=== PATIENT | male | born 1990 | race Caucasian/White ===

== ENCOUNTER → 2020-12-15 | Day surgery (SDC) | payer OTHER ==
[~2020-12-15] VITALS: Ht 175.3 cm; Wt 77.3 kg
[~2020-12-15] MED LIST: ACETAMINOPHEN 1000MG 100ML IV BTL (OFIRMEV) (J0131 PER 10MG) As Ordered ONE; BUPIVACAINE HCL 0.5% 10ML VIAL As Ordered ONE; CEPH500C PO; COLA100C5 PO; HYDR-3713 PO; KETOROLAC 60MG 2ML VIAL As Ordered ONE; LIDOCAINE 1% MDV 20ML VIAL As Ordered ONE; LIDOCAINE 1% MDV 20ML VIAL SC ONE; LIDOCAINE 2% 100MG/5ML SDV (FOR ANES.) As Ordered ONE; LR 1,000 ML IV SCH; MIDAZOLAM INJ 2MG/2ML VIAL (J2250 PER 1MG) As Ordered ONE; MORPHINE 4 MG/ML 1ML VIAL/SYRINGE (J2270) As Ordered ONE; MORPHINE 4 MG/ML 1ML VIAL/SYRINGE (J2270) IV ONE; ONDANSETRON 4MG/2ML VIAL As Ordered ONE; ONDANSETRON 4MG/2ML VIAL IV ONE; ONDANSETRON 4MG/2ML VIAL IV PRN; TETANUS/DIPHTHERIA TOX ADSORB ADULT 0.5ML SYR/VIAL (90714) IM ONE; ceFAZolin SOD 2 GM in IV 1 EA IV ONE; dexameTHASONE 4 MG/ML 1ML VIAL (J1100 PER 1MG) As Ordered ONE; fentaNYL 100 MCG/2 ML INJECTION (J3010) IV PRN; fentaNYL 250 MCG/5 ML INJECTION (J3010) As Ordered ONE; oxyCODONE 5MG TAB PO PRN; propofoL 200 MG/20 ML VIAL As Ordered ONE
--- OUTSIDE RECORDS SUMMARY | 2020-12-15 02:10 | CCD | Continuity of Care Document ---
Author Author Chi ISAACS MD Organization Unknown Address [address] [place] [address] Phone [phone] Care Team Providers Care Copy Center Specialist Name Role Phone Usa MeddacAshley federico AUTM Unavailable Problems Description No Information Available Social History Type Date Description Comments Sex Unknown Tobacco Use Start: Unknown End: Unknown Quit Tobacco Use Start: Unknown Never Smoked Cigars Tobacco Use Start: Unknown Never Smoked A Pipe Tobacco Use Start: Unknown Current Smokeless Tobacco User, Uses 3 Times Daily ETOH Use Occasionally consumes alcohol Tobacco Use Start: Unknown End: Patient is a former smoker Allergies, Adverse Reactions, Alerts Active Allergies Reaction Severity Comments Date NKDA 03/05/2017 NKFA 03/05/2017 NKEA 03/05/2017 Medications Description No Active Medications Immunizations Description No Information Available Vital Signs Date Vital Result Comment 09/25/2020 2:01pm BP Systolic 133 mmHg BP Diastolic 77 mmHg Heart Rate 80 /min Body Temperature 98.7 F O2 % BldC Oximetry 98 % Weight 175.00 lb Weight 79.380 kg 07/25/2020 9:43am BP Systolic 133 mmHg BP Diastolic 84 mmHg Heart Rate 55 /min Body Temperature 97.4 F Weight 165.00 lb Weight 74.844 kg Height 69 inches 5'9" BMI (Body Mass Index) 24.4 kg/m2 BSA (Body Surface Area) 1.90 m2 Results Description No Information Available Procedures Description No Information Available Medical Devices Description No Information Available Encounters Description No Information Available Assessments Date Code Description Provider 07/25/2020 Z48.89 Encounter for other specified dye rgical aftercare Ap Isaacs MD 05/24/2020 N62 Hypertrophy of breast Ap chu MD Plan of Treatment 07/25/2020 - Ap Isaacs MD* Z48.89 Encounter for other specified surgical aftercare* Comments:* Assessment: Satisfactory postoperative course.Plan: Return to work: scheduled for 08/08/2020. No contraindication to return to full activity at that time.Follow-up for wound check and to assess for residual breast enlargement and 2-3 months. Functional Status Description No Information Available Mental Status Description No Information Available Referrals Description No Information Available
--- OUTSIDE RECORDS SUMMARY | 2020-12-15 02:11 | CCD ---
Author Author [facility] Organization [facility] Address Unknown Phone Unavailable Care Team Providers Care Bit Bender Name Role Phone Greg ISAACS MD Unavailable Unavailable Greg ISAACS MD Unavailable Unavailable Greg ISAACS MD Unavailable Unavailable Greg ISAACS MD Unavailable Unavailable Greg ISAACS MD Unavailable Unavailable Greg ISAACS MD Unavailable Unavailable Greg ISAACS MD Unavailable Unavailable Greg ISAACS MD Unavailable Unavailable Greg ISAACS MD Unavailable Unavailable Greg ISAACS MD Unavailable Unavailable Greg ISAACS MD Unavailable Unavailable Greg ISAACS MD Unavailable Unavailable Greg ISAACS MD Unavailable Unavailable NON, PHYSICIAN STAFF Unavailable Unavailable KARLA KUHN FEBRUARY Unavailable Unavailable Greg ISAACS MD Unavailable Unavailable Greg ISAACS MD Unavailable Unavailable Greg ISAACS MD Unavailable Unavailable Greg ISAACS MD Unavailable Unavailable Greg ISAACS MD Unavailable Unavailable Greg ISAACS MD Unavailable Unavailable Greg ISAACS MD Unavailable Unavailable Greg ISAACS MD Unavailable Unavailable Greg ISAACS MD Unavailable Unavailable Greg ISAACS MD Unavailable Unavailable Greg ISAACS MD Unavailable Unavailable Greg ISAACS MD Unavailable Unavailable Greg ISAACS MD Unavailable Unavailable Andrew CLAROS MD Unavailable Unavailable Andrew CLAROS MD Unavailable Unavailable Andrew CLAROS MD Unavailable Unavailable Andrew CLAROS MD Unavailable Unavailable Andrew CLAROS MD Unavailable Unavailable Andrew CLAROS MD Unavailable Unavailable Andrew CLAROS MD Unavailable Unavailable Andrew CLAROS MD Unavailable Unavailable Andrew CLAROS MD Unavailable Unavailable Andrew CLAROS MD Unavailable Unavailable Andrew CLAROS MD Unavailable Unavailable Andrew CLAROS MD Unavailable Unavailable Andrew CLAROS MD Unavailable Unavailable Andrew CLAROS MD Unavailable Unavailable Andrew CLAROS MD Unavailable Unavailable Andrew CLAROS MD Unavailable Unavailable Andrew CLAROS MD Unavailable Unavailable Andrew CLAROS MD Unavailable Unavailable Andrew CLAROS MD Unavailable Unavailable Andrew CLAROS MD Unavailable Unavailable Andrew CLAROS MD Unavailable Unavailable Andrew CLAROS MD Unavailable Unavailable Andrew CLAROS MD Unavailable Unavailable Andrew CLAROS MD Unavailable Unavailable Andrew CLAROS MD Unavailable Unavailable Andrew CLAROS MD Unavailable Unavailable Andrew CLAROS MD Unavailable Unavailable Andrew CLAROS MD Unavailable Unavailable Andrew CLAROS MD Unavailable Unavailable Andrew CLAROS MD Unavailable Unavailable Andrew CLAROS MD Unavailable Unavailable Andrew CLAROS MD Unavailable Unavailable Andrew CLAROS MD Unavailable Unavailable Andrew CLAROS MD Unavailable Unavailable Andrew CLAROS MD Unavailable Unavailable Andrew CLAROS MD Unavailable Unavailable Andrew CLAROS MD Unavailable Unavailable Andrew CLAROS MD Unavailable Unavailable Andrew CLAROS MD Unavailable Unavailable Andrew CLAROS MD Unavailable Unavailable Andrew CLAROS MD Unavailable Unavailable Andrew CLAROS MD Unavailable Unavailable Andrew CLAROS MD Unavailable Unavailable Andrew CLAROS MD Unavailable Unavailable Andrew CLAROS MD Unavailable Unavailable Andrew CLAROS MD Unavailable Unavailable Andrew CLAROS MD Unavailable Unavailable Andrew CLAROS MD Unavailable Unavailable Andrew CLAROS MD Unavailable Unavailable Andrew CLAROS MD Unavailable Unavailable Re-disclosure Warning The records that you are about to access may contain information from federally-assisted alcohol or drug abuse programs. If such information is present, then the following federally mandated warning applies: This information has been disclosed to you from records protected by federal confidentiality rules (42 CFR part 2). The federal rules prohibit you from making any further disclosure of this information unless further disclosure is expressly permitted by the written consent of the person to whom it pertains or as otherwise permitted by 42 CFR part 2. A general authorization for the release of medical or other information is NOT sufficient for this purpose. The Federal rules restrict any use of the information to criminally investigate or prosecute any alcohol or drug abuse patient.The records that you are about to access may contain highly sensitive health information, the redisclosure of which is protected by Article 27-F of the [facility] Public Health law. If you continue you may have access to information: Regarding HIV / AIDS; Provided by facilities licensed or operated by the [facility] Office of Mental Health; or Provided by the [facility] Office for People With Developmental Disabilities. If such information is present, then the following [facility] mandated warning applies: This information has been disclosed to you from confidential records which are protected by state law. State law prohibits you from making any further disclosure of this information without the specific written consent of the person to whom it pertains, or as otherwise permitted by law. Any unauthorized further disclosure in violation of state law may result in a fine or snf sentence or both. A general authorization for the release of medical or other information is NOT sufficient authorization for further disc losure. Allergies and Adverse Reactions Type Description Substance Reaction Status Data Source(s ) No Known Drug Allergies No Known Drug Allergies [facility] No Known Food Allergies No Known Food Allergies [facility] No Known Allergies No Known Allergies [facility] Encounters Encounter Providers Location Date Indications Data Source(s ) Outpatient Attender: HERBERT ISAACS MDConsultant: STAFF NON 09/25/2020 01:59:00 PM EST - 09/25/2020 01:59:00 PM EST [facility] Outpatient Attender: HERBERT ISAACS MDConsultant: STAFF NON 07/25/2020 09:40:00 AM EDT - 07/25/2020 09:40:00 AM EDT [facility] Outpatient Attender: HERBERT ISAACS MDConsultant: STAFF NON 07/09/2020 07:20:54 AM EDT - 07/10/2020 01:54:00 PM EDT [facility] Patient discharged. Outpatient Attender: HERBERT ISAACS MDConsultant: STAFF NON 06/11/2020 07:33:56 AM EDT - 06/12/2020 02:50:00 PM EDT [facility] Patient discharged. Outpatient Attender: ERICK Gómezsultant: STAFF NON 05/24/2020 05:08:00 PM EDT - 05/24/2020 06:08:00 PM EDT [facility] Outpatient Attender: HERBERT ISAACS MD Family Practice 05/24/2020 0 2:00:00 PM EDT [facility] ([facility]) Outpatient Attender: HERBERT ISAACS MDConsultant: STAFF NON 05/24/2020 01:59:00 PM EDT - 05/24/2020 01:59:00 PM EDT [facility] Outpatient Attender: ERICK Gómezsultant: STAFF NON 05/23/2020 03:23:13 PM EDT - 07/26/2020 10:37:00 AM EDT [facility] Patient discharged. Attender: MARY CLAROS MD [facility] Adult Medicine 05/01/2020 06:15:00 PM EDT - 05/01/2020 06:15:00 PM EDT [facility] ([facility]) OutpatientOFFICE/OUTPATIENT VISIT EST Attender: MARY ROSS MA, MD [facility] Adult Medicine 04/26/2020 11:30:00 AM EDT - 04/26/2020 11:30:00 AM ED T Encounter for STD screening [facility] ([facility]) Encounter for STD screening Medications Medication Brand Name Start Date Product Form Dose Route Admi nistrative Instructions Pharmacy Instructions Status Indications Reaction Description Data Source(s) 5-325 mg 07/10/2020 12:00:00 AM EDT tablet 10 TAKE ONE TABLET BY MOUTH EVERY 4 HOURS NEEDED FOR PAIN - MAXIMUM DAILY DOSE = 6 TAKE ONE TABLET BY MOUTH EVERY 4 HOURS NEEDED FOR PAIN - MAXIMUM DAILY DOSE = 6 SOLD: 07/10/2020 [facility] Insurance Providers Payer name Policy type / Coverage type Policy ID Covered constitution party ID Covered constitution party's relationship to vázquez Policy Vázquez Plan Information ACTIVE DUTY [id number] SP [id number] [employer] - PHYSICIAN [id number] 18 [id number] [employer] - O/P [id number] 18 [id number] [id number] [place] [id number] 18 [id number] [place] [id number] 18 [id number] [place] [employer] [place] [id number] 18 [id number] U [id number] Self [id number] [employer]/ AD O [id number] S [id number] [employer]/ AD O UNAVAILABLE S UNAVAILABLE ACTIVE DUTY [id number] SELF [id number] SELF [id number] [facility] [id number] SELF [id number] Problems, Conditions, and Diagnoses Code Display Name Description Problem Type Effective Dates Data Source(s) R99 Ill-defined and unknown cause of mortali ty Ill-defined and unknown cause of mortality Diagnosis 07/26/2020 10:37:00 AM EDT [facility] [id number] Encounter for surgical after care following surgery on the skin and subcutaneous tissue Encounter for surgical aftercare followi ng surgery on the skin and subcutaneous tissue Diagnosis 07/25/2020 09:40:00 AM EDT [facility] N62 Hypertrophy of breast Hypertrophy of breast Diagnosis 07/10/2020 11:30:00 AM EDT [facility] Surgeries/Procedures Procedure Description Date Indications Data Source(s) OFFICE/OUTPATIENT VISIT EST 04/26/2020 1 2:00:00 AM EDT - 04/26/2020 12:00:00 AM EDT [facility] ([facility]) Results ID Date Data Source [id number] 05/25/2020 10:04:00 AM EDT [facility] [address] [place] [address] PHONE: [phone] FAX: [phone] Name .................. : LUZ ELENA Paredes Acct Number.................. : [id number] ROOM. ................. : MR Number ................... : [id number] Stay type ............. : O/P Discharge Date......... ... : 05/24/20 Admit Date ....... .. : 05/24/20 Admit Phys .................... : Feb Date of ....... : 1990 Family Phys ................... : NON STAFF Phone .................. : [phone] Age ................................ : 30 Film# .................. .:[id number] Sex ................................. : M Unsigned transcriptions are preliminary reports and do not represent a medical or legal document BREAST LEFT [id number] COMPLETE:05/24/20 17:47 ADB 65433 (TEST REASON: GYNECOMASTIA LEFT BREAST ULTRASOUND: INDICATION: Gynecomastia. FINDINGS: Focused gonzales scale ultrasound of the left breast was performed. In the 3 o'clock position, there is a 0.7 x 1.7 x 1.6 cm fairly well-circumscribed hypoechogenic focus with mild internal color Doppler flow. Findings most likely represent gynecomastia. Recommend follow up ultrasound in 6 months. IMPRESSION: BI-RADS category 3. Findings most likely represent gynecomastia. Recommend follow up evaluation in 6 months. Electronically Reviewed and Signed By Sabino Henderson M.D. , 05/25/20 10:04, [place] Transcribe Initials: DZ , Transcribe Date: 05/25/20 01:20, Dictation Date: Copy for: HATTIE ACOSTA via fax Copy for: Xochitl [facility] Page 1 of 1 Name Value Range Interpretation Code Description Data Dejah rce(s) Supporting Document(s) ID Date Data Source [id number] 05/30/2020 06:26:00 AM EDT [facility] Name Value Range Interpretation Code Description Data Dejah rce(s) Supporting Document(s) Estrogen [Mass/volume] in Serum or Plasma 63 pg/mL 40-115 [facility] ID Date Data Source [id number] 05/28/2020 06:24:00 AM [facility] Value Range Interpretation Code Description Data Dejah rce(s) Supporting Document(s) Choriogonadotropin.intact+Beta subunit [Units/volume] in Serum or Plasma <1 mIU/mL 0-3 [facility] [place] ECLIA methodology ID Date Data Source [id number] 05/28/2020 06:24:00 AM [facility] Value Range Interpretation Code Description Data Dejah rce(s) Supporting Document(s) Lutropin [Units/volume] in Serum or Plasma 4.6 mIU/mL 1.7-8.6 [facility] ID Date Data Source [id number] 05/28/2020 06:24:00 AM [facility] Name Value Range Interpretation Code Description Data Dejah rce(s) Supporting Document(s) Testosterone [Mass/volume] in Serum or Plasma 388 ng/dL 264-916 [facility] Adult male reference interval is based o n a population ofhealthy nonobese males (BMI <30) between 19 and 39 years old.jose juan Eckert.al. JCEM 2017,102;4727-7929. PMID: [id number]. Testosterone Free [Mass/volume] in Serum or Plasma 11.1 pg/mL 9.3-26. 5 [facility] ID Date Data Source [id number] 04/27/2020 02:20:00 PM EDT [facility] Received: 04/26/2020 at 14:34:00 QPT : [facility], [address], [address] [place], [address], Benjamin Kramer MD Received: 04/26/2020 at 14:34:00 QPT : [employer] [employer], [address], [address] [place], [address]Benjamin MD Received: 04/26/2020 at 14:34:00 QPT : [employer] [employer], [address], [address] [place], [address], Benjamin Kramer MD Name Value Range Interpretation Code Description Data Dejah rce(s) Supporting Document(s) HIV 1+2 Ab+HIV1 p24 Ag [Presence] in Serum or Plasma by Immu noassay NON-REACTIVE Normal (applies to non-numeric results) [facility] HIV-1 antigen and HIV-1/HIV-2 antibodies were notdetected. There is no laboratory evidence of HIVinfection.PLEASE NOTE: This information has been disclosed toyou from records whose confidentiality may beprotected by state law. If your state requires suchprotection, then the state law prohibits you frommaking any further disclosure of the informationwithout the specific written consent of the personto whom it pertains, or as otherwise permitted by law.A general authorization for the release of medical orother information is NOT sufficient for this purpose.For additional information please refer toht tp://education.[employer]/faq/KXW542(This link is being provided for informational/educational purposes only.)The performance of this assay has not been clinicallyvalidated in patients less than 2 years old. ID Date Data Source [id number] 04/27/2020 02:20:00 PM EDT [facility] Received: 04/26/2020 at 14:34:00 QPT : [employer], [address], [address] [place], [address], Benjamin Kramer MD Received: 04/26/2020 at 14:34:00 QPT : [facility], [address], [address] [place], [address], Benjamin Kramer MD Received: 04/26/2020 at 14:34:00 QPT : [facility], [address], [address] [place], [address], Benjamin Kramer MD Name Value Range Interpretation Code Description Data Dejah rce(s) Supporting Document(s) Chlamydia trachomatis rRNA [Presence] in Unspecified specimen by Probe and target amplification method NOT DETECTED NOT DETECTED Normal (appl ies to non- numeric results) [facility] Neisseria gonorrhoeae rRNA [Presence] in Unspecified specimen by Probe and target amplification method NOT DETECTED NOT DETECTED Normal (appl ies to non- numeric results) [facility] COMMENT [facility] The analytical performance characteristi cs of thisassay, when used to test SurePath(TM) specimens have beendetermined by [employer]. The modifications havenot been cleared or approved by the FDA. This assay hasbeen validated pursuant to the CLIA regulations and isused for clinical purposes.For additional information, please refer tohttps://education.[employer]/faq/GDV872(This link is being provided for information/educational purposes only.) ID Date Data Source [id number] 04/27/2020 02:20:00 PM EDT [facility] Received: 04/26/2020 at 14:34:00 QPT : [facility], [address], [address] [place], [address], Benjamin Kramer MD Received: 04/26/2020 at 14:34:00 QPT : [facility], [address], [address] [place], [address]Benjamin MD Received: 04/26/2020 at 14:34:00 QPT : [facility] [address], [address] [place] [address], [address], Benjamin Kramer MD Name Value Range Interpretation Code Description Data Dejah rce(s) Supporting Document(s) Reagin Ab [Presence] in Serum by RPR NON-REACTIVE NON-REACTIV E Normal (applies to non-numeric results) [facility] Procedure Social History Code Duration Value Status Description Data Source(s ) Caffeine Use Details 05/01/2020 12:00:00 AM EDT completed [facility] ([facility]) Smoking 05/01/2020 12:00:00 AM EDT Unknown if ever smoked comp leted Unknown if ever smoked [facility] Vital Signs ID Date Data Source UNK Name Value Range Interpretation Code Description Data Source(s) Body weight 79.380 kg 79.380 kg [facility] ([facility]) Body weight 175.00 [lb_av] 175.00 [lb_av] [facility] ([facility]) Oxygen saturation in Arterial blood by Pulse oximetry 98 % 98 % [facility] ([facility]) Body temperature 98.7 [degF] 98.7 [facility]degF] [facility] Heart rate 80 /min 80 /min [facility] ([facility]) Diastolic blood pressure 77 mm[Hg] 77 mm[Hg[facility] Systolic blood pressure 133 mm[Hg] 133 mm[Hg] [facility] Body surface area Derived from formula 1.90 m2 1.90 m2 [facility] ([facility]) Body mass index (BMI) [Ratio] 24.4 kg/m2 24.4 k g/m2 [facility] ([facility]) Body height 69 [in_i] 69 [in_i] [facility] ([facility]) 5'9" Body weight 74.844 kg 74.844 kg [facility] ([facility]) Body weight 165.00 [lb_av] 165.00 [lb_av] [facility] ([facility]) Body temperature 97.4 [degF] 97.4 [degF] [facility] ([facility]) Heart rate 55 /min 55 /[facility] Diastolic blood pressure 84 mm[Hg] 84 mm[Hg] [facility] ([facility]) Systolic blood pressure 133 mm[Hg] 133 mm[Hg] [facility] Body surface area 1.90 m2 1.90 m2 [facility] ([facility]) Body weight 76.658 kg 76.658 kg [facility] ([facility]) Body weight 169.00 [lb_av] 169.00 [lb_av] [facility] ([facility]) Oxygen saturation in Arterial blood by Pulse oximetry 97 % 97 % [facility] Body temperature 98.8 [degF] 98.8 [degF] [facility] ([facility]) Heart rate 72 /min 72 /min [facility] ([facility]) Diastolic blood pressure 84 mm[Hg] 84 mm[Hg] [facility] ([facility]) Systolic blood pressure 134 mm[Hg] 134 mm[Hg] M [facility] ([facility]) Oxygen saturation in Arterial blood by Pulse oximetry 99 % 99 % [facility] Body mass index (BMI) [Ratio] 22.38 kg/m2 22.38 kg/m2 [facility] ([facility]) Respiratory rate 20 /min 20 /min [facility] ([facility]) Body temperature 36.00 Elma 36.00 Elma [facility] ([facility]) Heart rate 64 /min 64 /min [facility] ([facility]) Diastolic blood pressure 80 mm[Hg] 80 mm[Hg] [facility] ([facility]) Systolic blood pressure 110 mm[Hg] 110 mm[Hg] N [facility] ([facility]) Body weight 74.843 kg 74.843 kg [facility] ([facility]) Body height 182.88 cm 182.88 cm [facility] ([facility]) ID Date Data Source [id number] 07/25/2020 09:40:35 AM EDT [facility] Name Value Range Interpretation Code Description Data Source(s) WEIGHT RECORDED 165.00 pounds 165.00 pounds [facility] Height 69 Inches 069 Inches [facility]
--- NOTE | 2020-12-15 03:02 | REPVR ---
PROCEDURE INFORMATION: Exam: XR Right Hand Exam date and time: 12/15/2020 2:28 AM Age: 30 years old Clinical indication: Injury or trauma; R/O glass; Laceration; Arm, lower and hand; Right; Additional info: R/O glass foreign body TECHNIQUE: Imaging protocol: XR Right hand. Views: 1 or 2 views. COMPARISON: No relevant prior studies available. FINDINGS: Bones/joints: There is no fracture or dislocation. The joint spaces are preserved. No arthropathy is noted. Soft tissues: There is a 3 mm linear radiopaque foreign body in the soft tissues along the radial aspect of the right 2nd metacarpophalangeal joint with soft tissue swelling around this region. No other foreign bodies are seen in the right hand. IMPRESSION: 3 mm radiopaque foreign body in the soft tissues along the radial aspect of the right 2nd metacarpophalangeal joint, which may represent a glass foreign body. Electronically signed by: Marco Velázquez On 12/15/2020 03:01:48 AM
--- NOTE | 2020-12-15 03:05 | REPVR ---
PROCEDURE INFORMATION: Exam: XR Right Forearm Exam date and time: 12/15/2020 2:28 AM Age: 30 years old Clinical indication: Injury or trauma; Other: R/O glass; Laceration; Arm, lower and hand; Right; Additional info: R/O glass foreign body TECHNIQUE: Imaging protocol: XR Right forearm. Views: 2 views. COMPARISON: No relevant prior studies available. FINDINGS: Bones/joints: Normal. There is no fracture or dislocation. Soft tissues: In the lateral view, there is a 2 mm subtle linear radiopaque foreign body in the skin along the volar aspect of the right proximal forearm. IMPRESSION: 2 mm linear radiopaque foreign body in the skin along the volar aspect of the right proximal forearm, which may represent a glass foreign body. Electronically signed by: Marco Velázquez On 12/15/2020 03:04:53 AM
--- OUTSIDE RECORDS SUMMARY | 2020-12-15 03:14 | CCD ---
Author Author [facility] Organization [facility] Address Unknown Phone Unavailable Care Team Providers Care Business Support Specialist Name Role Phone Greg ISAACS MD Unavailable [...] is protected by Article 27-F of the [facility] Public Health law. If you continue you may have access to information: Regarding HIV / AIDS; Provided by facilities licensed or operated by the [facility] Office of Mental Health; or Provided by the [facility] Office for People With Developmental Disabilities. If such information is present, then the following [facility] mandated warning applies: This information has been [...] law may result in a fine or group home sentence or both. A general authorization for the release of medical or other information is NOT sufficient authorization for further disc losure. Allergies and Adverse Reactions Type Description Substance Reaction Status Data Source(s ) No Known Drug Allergies No Known Drug Allergies [facility] No Known Food Allergies No Known Food Allergies [facility] No Known Allergies No Known Allergies [facility] Encounters Encounter Providers Location Date Indications Data Source(s ) Outpatient Attender: HERBERT ISAACS MDConsultant: STAFF NON 09/25/2020 01:59:00 PM EST - 09/25/2020 01:59:[address] [facility] Outpatient Attender: HERBERT ISAACS MDConsultant: STAFF NON 07/25/2020 09:40:00 AM EDT - 07/25/2020 09:40:[address] [facility] Outpatient Attender: HERBERT ISAACS MDConsultant: STAFF NON 07/09/2020 07:20:54 AM EDT - 07/10/2020 01:54:[address] [facility] Patient discharged. Outpatient Attender: HERBERT ISAACS MDConsultant: STAFF NON 06/11/2020 07:33:56 AM EDT - 06/12/2020 02:50:[address] [facility] Patient discharged. Outpatient Attender: ERICK KUHNConsultant: STAFF NON 05/24/2020 05:08:00 PM EDT - 05/24/2020 06:08:[address] [facility] Out[facility] Attender: HERBERT ISAACS MD Family Practice 05/24/2020 0 2:00:00 PM EDT [facility] ([facility]) Outpatient Attender: HERBERT ISAACS MDConsultant: STAFF NON 05/24/2020 01:59:00 PM EDT - 05/24/2020 01:59:[address] [facility] Outpatient Attender: ERICK Gómezsultant: STAFF NON 05/23/2020 03:23:13 PM EDT - 07/26/2020 10:37:[address] [facility] Patient discharged. Attender: MARY CLAROS MD [facility] Adult Medicine 05/01/2020 06:15:00 PM EDT - 05/01/2020 06:15:00 PM EDT [facility] ([facility]) OutpatientOFFICE/OUTPATIENT VISIT EST Attender: MARY ROSS MA, MD [facility] Adult Medicine 04/26/2020 11:30:00 AM EDT - 04/26/2020 11:30:00 AM ED T Encounter for STD screening [facility] ([facility]) Encounter for STD screening Medications Medication Brand [...] type / Coverage type Policy ID Covered libertarian ID Covered libertarian's relationship to vázquez Policy Vázquez Plan Information ACTIVE DUTY [id number] SP [id number] [employer] - PHYSICIAN [id number] 18 [id number] [employer] - O/P [id number] 18 [id number] [id number] [place] [id number] 18 [id number] [place] [employer] [place] [place] [id number] 18 [id number] [place] [employer] [place] [id number] 18 [id number] U [id number] Self [id number] [employer]/ AD O [id number] S [id number] [employer]/ AD O UNAVAILABLE S UNAVAILABLE ACTIVE DUTY [id number] SELF [id number] SELF [id number] [facility] [id number] SELF [id number] Problems, Conditions, and Diagnoses Code Display Name Description Problem Type Effective Dates Data Source(s) R99 Ill-defined and unknown cause of mortali ty Ill-defined and unknown cause of mortality Diagnosis 07/26/2020 10:37:00 AM EDT [facility] [id number] Encounter for surgical after care following surgery on the skin and subcutaneous tissue Encounter for surgical aftercare followi ng surgery on the skin and subcutaneous tissue Diagnosis 07/25/2020 09:40:00 AM EDT [facility] N62 Hypertrophy of breast Hypertrophy of breast Diagnosis 07/10/2020 11:30:00 AM EDT [facility] Surgeries/Procedures Procedure Description Date Indications Data Source(s) OFFICE/OUTPATIENT VISIT EST 04/26/2020 1 2:00:00 AM EDT - 04/26/2020 12:00:00 AM EDT [facility] ([facility]) Results ID Date Data Source [id number] 05/25/2020 10:04:00 AM EDT [facility] [address] [place] [address] PHONE: [phone] FAX: [phone] Name .................. : LUZ ELENA Paredes Acct Number.................. : [id number] ROOM. ................. : MR Number ................... : [id number] Stay type ............. : O/P Discharge Date......... ... : 05/24/20 Admit Date ....... .. : 05/24/20 Admit Phys .................... : Feb Date of ....... : 1990 Family Phys ................... : NON STAFF Phone .................. : [phone] Age ................................ : 30 Film# .................. .:[id number] Sex ................................. : M Unsigned transcriptions are preliminary reports and do not represent a medical or legal document BREAST LEFT [id number] COMPLETE:05/24/20 17:47 ADB 26413 (TEST REASON: GYNECOMASTIA LEFT BREAST ULTRASOUND: INDICATION: [...] HATTIE ACOSTA via fax Copy for: [facility] Page 1 of 1 Name Value Range Interpretation Code Description Data Dejah rce(s) Supporting Document(s) ID Date Data Source [id number] 05/30/2020 06:26:00 AM EDT [facility] Name Value Range Interpretation Code Description Data Dejah rce(s) Supporting Document(s) Estrogen [Mass/volume] in Serum or Plasma 63 pg/mL 40-115 [facility] ID Date Data Source [id number] 05/28/2020 06:24:00 AM [facility] Value Range Interpretation Code Description Data Dejah rce(s) Supporting Document(s) Choriogonadotropin.intact+Beta subunit [Units/volume] in Serum or Plasma <1 mIU/mL 0-3 [facility] ECLIA methodology ID Date Data Source [id number] 05/28/2020 06:24:00 AM [facility] Name Value Range Interpretation Code Description Data Dejah rce(s) Supporting Document(s) Lutropin [Units/volume] in Serum or Plasma 4.6 mIU/mL 1.7-8.6 [facility] ID Date Data Source [id number] 05/28/2020 06:24:00 AM [facility] Name Value Range Interpretation Code Description Data Dejah rce(s) Supporting Document(s) Testosterone [Mass/volume] in Serum or Plasma 388 ng/dL 264-916 [facility] Adult male reference interval is based o n a population ofhealthy nonobese males (BMI <30) between 19 and 39 years old.jose juan Eckert.al. JCEM 2017,102;0258-2534. PMID: [id number]. Testosterone Free [Mass/volume] in Serum or Plasma 11.1 pg/mL 9.3-26. 5 [facility] ID Date Data Source [id number] 04/27/2020 02:20:00 PM EDT [facility] Received: 04/26/2020 at 14:34:00 QPT : [facility], [address], [address] [place], [address], Benjamin Kramer MD Received: 04/26/2020 at 14:34:00 QPT : [facility], [address], [address] [place], [address]Benjamin MD Received: 04/26/2020 at 14:34:00 QPT : [facility], [address], [address] [place], [address], Benjamin Kramer MD Name Value Range Interpretation Code Description Data Dejah rce(s) Supporting Document(s) HIV 1+2 Ab+HIV1 p24 Ag [Presence] in Serum or Plasma by Immu noassay NON-REACTIVE Normal (applies to non-numeric results) [facility] HIV-1 antigen and HIV-1/HIV-2 antibodies were [...] this purpose.For additional information please refer toht [email or web address]! [email or web address]/[email or web address](This link is being provided for informational/educational purposes only.)The performance of this assay has not been clinicallyvalidated in patients less than 2 years old. ID Date Data Source [id number] 04/27/2020 02:20:00 PM EDT [facility] Received: 04/26/2020 at 14:34:00 QPT : [facility], [address], [address] [place], [address], Benjamin Kramer MD Received: 04/26/2020 at 14:34:00 QPT : [facility], [address], [address] [place], [address], Benjamin Kramer MD Received: 04/26/2020 at 14:34:00 QPT : [facility], [address], [address] [place], [address], Benjamin Kramer MD Name Value Range Interpretation [...] to non- numeric results) [facility] COMMENT [facility] The analytical performance characteristi cs of thisassay, when used to test SurePath(TM) specimens have beendetermined by [facility]. The modifications havenot been cleared or approved by the FDA. This assay hasbeen validated pursuant to the CLIA regulations and isused for clinical purposes.For additional information, please refer tohttps://education.TeraView/faq/VBZ605(This link is being provided for information/educational purposes only.) ID Date Data Source [id number] 04/27/2020 02:20:00 PM EDT [facility] Received: 04/26/2020 at 14:34:00 QPT : [facility], [address], [address] [place], [address], Benjamin Kramer MD Received: 04/26/2020 at 14:34:00 QPT : [facility], [address], [address] [place], [address]Benjamin MD Received: 04/26/2020 at 14:34:00 QPT : [facility] [address], [address] [place] [address], [address], Benjamin Kramer MD Name Value Range Interpretation Code Description Data Dejah rce(s) Supporting Document(s) Reagin Ab [Presence] in Serum by RPR NON-REACTIVE NON-REACTIV E Normal (applies to non-numeric results) [facility] Procedure Social History Code Duration Value Status Description Data Source(s ) Caffeine Use Details 05/01/2020 12:00:00 AM EDT completed [facility] ([facility]) Smoking 05/01/2020 12:00:00 AM EDT Unknown if ever smoked comp leted Unknown if ever smoked [facility] ([facility]) Vital Signs ID Date Data Source UNK Name Value Range Interpretation Code Description Data Source(s) Body weight 79.380 kg 79.380 kg [facility] ([facility]) Body weight 175.00 [lb_av] 175.00 [lb_av] [facility] ([facility]) Oxygen saturation in Arterial blood by Pulse oximetry 98 % 98 % [facility] ([facility]) Body temperature 98.7 [degF] 98.7 [degF] [facility] Heart rate 80 /min 80 /min [facility] ([facility]) Diastolic blood pressure 77 mm[Hg] 77 mm[Hg] [facility] ([facility]) Systolic blood pressure 133 mm[Hg] 133 mm[Hg] M [facility] ([facility]) Body surface area Derived from formula 1.90 m2 1.90 m2 [facility] ([facility]) Body mass index (BMI) [Ratio] 24.4 kg/m2 24.4 k g/m2 [facility] ([facility]) Body height 69 [in_i] 69 [in_i] [facility] ([facility]) 5'9" Body weight 74.844 kg 74.844 kg [facility] ([facility]) Body weight 165.00 [lb_av] 165.00 [lb_av] [facility] ([facility]) Body temperature 97.4 [degF] 97.4 [degF] [facility] ([facility]) Heart rate 55 /min 55 /min [facility] ([facility]) Diastolic blood pressure 84 mm[Hg] 84 mm[Hg] [facility] ([facility]) Systolic blood pressure 133 mm[Hg] 133 mm[Hg] [facility] Body surface area 1.90 m2 1.90 m2 [facility] ([facility]) Body weight 76.658 kg 76.658 kg [facility] ([facility]) Body weight 169.00 [lb_av] 169.00 [lb_av] [facility] ([facility]) Oxygen saturation in Arterial blood by Pulse oximetry 97 % 97 % [facility] ([facility]) Body temperature 98.8 [degF] 98.8 [degF] [facility] ([facility]) Heart rate 72 /min 72 /min [facility] ([facility]) Diastolic blood pressure 84 mm[Hg] 84 mm[Hg] [facility] ([facility]) Systolic blood pressure 134 mm[Hg] 134 mm[Hg] M [facility] ([facility]) Oxygen saturation in Arterial blood by Pulse oximetry 99 % 99 % [facility] Body mass index (BMI) [Ratio] 22.38 kg/m2 22.38 kg/m2 [facility] Respiratory rate 20 /min 20 /min [facility] ([facility]) Body temperature 36.00 Elma 36.00 Elma [facility] ([facility]) Heart rate 64 /min 64 /min [facility] ([facility]) Diastolic blood pressure 80 mm[Hg] 80 mm[Hg] [facility] ([facility]) Systolic blood pressure 110 mm[Hg] 110 mm[Hg] N [facility] ([facility]) Body weight 74.843 kg 74.843 kg [facility] ([facility]) Body height 182.88 cm 182.88 cm [facility] ([facility]) ID Date Data Source [id number] 07/25/2020 09:40:35 AM EDT [facility] Name Value Range Interpretation Code Description Data Source(s) WEIGHT RECORDED 165.00 pounds 165.00 pounds [facility] Height 69 Inches 069 Inches [facility]
[2020-12-15 07:36] LABS: RSV AMPLIFICATION NEGATIVE (NEGATIVE)
--- NOTE | 2020-12-15 08:22 | REP ---
INDICATION: r/o fracture vs fb. COMPARISON: None. TECHNIQUE: AP and lateral views as requested. FINDINGS: AP and lateral views of the right elbow demonstrate normal bones, joints, and soft tissues. No fracture or subluxation is seen. No opaque foreign body noted. There is no evidence of joint effusion. IMPRESSION: Negative right elbow two view series. <Electronically signed by Todd Gambino > 12/15/20 0818
[2020-12-15] MEDS: MORPHINE 4 MG/ML 1ML VIAL/SYRINGE (J2270) IV PRN ×2 (08:29→09:44)
--- OUTSIDE RECORDS SUMMARY | 2020-12-15 10:43 | CCD ---
Author Author [facility] Organization [facility] Address Unknown Phone Unavailable Care Team Providers Care Drum Drier Name Role Phone Greg ISAACS MD Unavailable [...] is protected by Article 27-F of the [facility] Public Health law. If you continue you may have access to information: Regarding HIV / AIDS; Provided by facilities licensed or operated by the [facility] Office of Mental Health; or Provided by the [facility] Office for People With Developmental Disabilities. If such information is present, then the following [facility] mandated warning applies: This information has [...] law may result in a fine or shelter sentence or both. A general authorization for the release of medical or other information is NOT sufficient authorization for further disc losure. Allergies and Adverse Reactions Type Description Substance Reaction Status Data Source(s ) No Known Drug Allergies No Known Drug Allergies [facility] No Known Food Allergies No Known Food Allergies [facility] No Known Allergies No Known Allergies [facility] Encounters Encounter Providers Location Date Indications Data Source(s ) Outpatient Attender: HERBERT ISAACS MDConsultant: STAFF NON 09/25/2020 01:59:00 PM EST - 09/25/2020 01:59:00 PM EST [facility] Outpatient Attender: HERBERT ISAACS MDConsultant: STAFF NON 07/25/2020 09:40:00 AM EDT - 07/25/2020 09:40:00 AM EDT [facility] Outpatient Attender: HERBERT ISAACS MDConsultant: STAFF NON 07/09/2020 07:20:54 AM EDT - 07/10/2020 01:54:00 PM EDT [facility] Patient discharged. Outpatient Attender: HERBERT ISAACS MDConsultant: STAFF NON 06/11/2020 07:33:56 AM EDT - 06/12/2020 02:50:00 PM EDT [facility] Patient discharged. Outpatient Attender: ERICK KUHNConsultant: STAFF NON 05/24/2020 05:08:00 PM EDT - 05/24/2020 06:08:00 PM EDT [facility] Outpatient Attender: HERBERT ISAACS MD Family Practice 05/24/2020 0 2:00:00 PM EDT [facility] ([facility]) Outpatient Attender: HERBERT ISAACS MDConsultant: STAFF NON 05/24/2020 01:59:00 PM EDT - 05/24/2020 01:59:00 PM EDT [facility] Outpatient Attender: ERICK Gómezsultant: STAFF NON 05/23/2020 03:23:13 PM EDT - 07/26/2020 10:37:00 AM EDT [facility] Patient discharged. Attender: MARY CLAROS MD [facility] Adult Medicine 05/01/2020 06:15:00 PM EDT - 05/01/2020 06:15:00 PM EDT [facility] ([facility]) OutpatientOFFICE/OUTPATIENT VISIT EST Attender: MARY ROSS MA, MD [facility] Adult Medicine 04/26/2020 11:30:00 AM EDT - 04/26/2020 11:30:00 AM ED T Encounter for STD screening [facility] ([facility]) Encounter for STD screening Medications Medication Brand [...] type / Coverage type Policy ID Covered alliance party ID Covered alliance party's relationship to mae Policy Mae Plan Information EAST ACTIVE DUTY [id number] SP [id number] ACTIVE DUTY [id number] SP [id number] [employer] - PHYSICIAN [id number] 18 [id number] E[employer] - O/P [id number] 18 [id number] [id number] [place] [id number] 18 [id number] [place] [id number] 18 [id number] N [employer] [place] -O/P [place] [id number] 18 [id number] U [id number] Self [id number] HEALTH[employer]/ AD O [id number] S [id number] HEALTH[employer]/ AD O UNAVAILABLE S UNAVAILABLE ACTIVE DUTY [id number] SELF [id number] SELF [id number] [facility] [facility] [id number] SELF [id number] Problems, Conditions, and Diagnoses Code Display Name Description Problem Type Effective Dates Data Source(s) R99 Ill-defined and unknown cause of mortali ty Ill-defined and unknown cause of mortality Diagnosis 07/26/2020 10:37:00 AM EDT [facility] [id number] Encounter for surgical after care following surgery on the skin and subcutaneous tissue Encounter for surgical aftercare followi ng surgery on the skin and subcutaneous tissue Diagnosis 07/25/2020 09:40:00 AM EDT [facility] N62 Hypertrophy of breast Hypertrophy of breast Diagnosis 07/10/2020 11:30:00 AM EDT [facility] Surgeries/Procedures Procedure Description Date Indications Data Source(s) OFFICE/OUTPATIENT VISIT EST 04/26/2020 1 2:00:00 AM EDT - 04/26/2020 12:00:00 AM EDT [facility] ([facility]) Results ID Date Data Source [id number] 05/25/2020 10:04:00 AM EDT [facility] [place] [address] PHONE: [phone] FAX: [phone] Name .................. : LUZ ELENA Paredes Acct Number.................. : [id number] ROOM. ................. : MR Number ................... : [id number] Stay type ............. : O/P Discharge Date......... ... : 05/24/20 Admit Date ....... .. : 05/24/20 Admit Phys .................... : KUHN FEB Date of ....... : 1990 Family Phys ................... : NON STAFF Phone .................. : [phone] Age ................................ : 30 Film# .................. .:[id number] Sex ................................. : M Unsigned transcriptions are preliminary reports and do not represent a medical or legal document BREAST LEFT [id number] COMPLETE:05/24/20 17:47 ADB [id number] (TEST REASON: GYNECOMASTIA LEFT BREAST ULTRASOUND: INDICATION: [...] ACOSTA via fax Copy for: Xochitl [facility] Page 1 of 1 Name Value Range Interpretation Code Description Data Dejah rce(s) Supporting Document(s) ID Date Data Source [id number] 05/30/2020 06:26:00 AM T [facility] Value Range Interpretation Code Description Data Dejah rce(s) Supporting Document(s) Estrogen [Mass/volume] in Serum or Plasma 63 pg/mL 40-115 [facility] ID Date Data Source [id number] 05/28/2020 06:24:00 AM [facility] Value Range Interpretation Code Description Data Dejah rce(s) Supporting Document(s) Choriogonadotropin.intact+Beta subunit [Units/volume] in Serum or Plasma <1 mIU/mL 0-3 [facility] [place] ECLIA methodology ID Date Data Source [id number] 05/28/2020 06:24:00 AM [facility] Value Range Interpretation Code Description Data Dejah rce(s) Supporting Document(s) Lutropin [Units/volume] in Serum or Plasma 4.6 mIU/mL 1.7-8.6 [facility] ID Date Data Source [id number] 05/28/2020 06:24:00 AM [facility] Value Range Interpretation Code Description Data Dejah rce(s) Supporting Document(s) Testosterone [Mass/volume] in Serum or Plasma 388 ng/dL 264-916 [facility] Adult male reference interval is based o n a population ofhealthy nonobese males (BMI <30) between 19 and 39 years old.Babar et.al. JCEM 2017,102;4018-7783. PMID: 55353682. Testosterone Free [Mass/volume] in Serum or Plasma 11.1 pg/mL 9.3-26. 5 [facility] ID Date Data Source [id number] 04/27/2020 02:20:00 PM EDT [facility] Received: 04/26/2020 at 14:34:00 QPT : [facility], [address], [address] [place], [address], Benjamin Kramer MD Received: 04/26/2020 at 14:34:00 QPT : [facility], [address], [address] [place], [address], Benjamin Kramer MD Received: 04/26/2020 at 14:34:00 QPT : [facility], [address], [address] [place], [address], Benjamin Kramer MD Name Value Range Interpretation Code Description Data Dejah rce(s) Supporting Document(s) HIV 1+2 Ab+HIV1 p24 Ag [Presence] in Serum or Plasma by Immu noassay NON-REACTIVE Normal (applies to non-numeric results) [facility] HIV-1 antigen and HIV-1/HIV-2 antibodies were notdetected. [...] this purpose.For additional information please refer toht tp://education.[employer]/faq/FHG128(This link is being provided for informational/educational purposes only.)The performance of this assay has not been clinicallyvalidated in patients less than 2 years old. ID Date Data Source [id number] 04/27/2020 02:20:00 PM EDT [facility] Received: 04/26/2020 at 14:34:00 QPT : [facility], [address], [address] [place], [address], Benjamin Kramer MD Received: 04/26/2020 at 14:34:00 QPT : [facility], [address], [address] [place], [address], Benjamin Kramer MD Received: 04/26/2020 at 14:34:00 QPT : [facility], [address], [address] [place], [address], Benjamin Kramer MD Name Value Range Interpretation [...] to non- numeric results) [facility] COMMENT [facility] The analytical performance characteristi cs of thisassay, when used to test SurePath(TM) specimens have beendetermined by [facility]. The modifications havenot been cleared or approved by the FDA. This assay hasbeen validated pursuant to the CLIA regulations and isused for clinical purposes.For additional information, please refer tohttps://education.[employer]/faq/BLZ802(This link is being provided for information/educational purposes only.) ID Date Data Source [id number] 04/27/2020 02:20:00 PM EDT [facility] Received: 04/26/2020 at 14:34:00 QPT : [facility], [address], [address] [place], [address]Benjamin MD Received: 04/26/2020 at 14:34:00 QPT : [facility], [address], [address] [place], [address], Benjamin Kramer MD Received: 04/26/2020 at 14:34:00 QPT : [facility], [address], [address] [place], [address], Benjamin Kramer MD Name Value Range Interpretation Code Description Data Dejah rce(s) Supporting Document(s) Reagin Ab [Presence] in Serum by RPR NON-REACTIVE NON-REACTIV E Normal (applies to non-numeric results) [facility] Procedure Social History Code Duration Value Status Description Data Source(s ) Caffeine Use Details 05/01/2020 12:00:00 AM EDT completed [facility] ([facility]) Smoking 05/01/2020 12:00:00 AM EDT Unknown if ever smoked comp leted Unknown if ever smoked [facility] ([facility]) Vital Signs ID Date Data Source UNK Name Value Range Interpretation Code Description Data Source(s) Body weight 79.380 kg 79.380 kg [facility] Body weight 175.00 [lb_av] 175.00 [lb_av] [facility] ([facility]) Oxygen saturation in Arterial blood by Pulse oximetry 98 % 98 % [facility] ([facility]) Body temperature 98.7 [degF] 98.7 [degF] [facility] ([facility]) Heart rate 80 /min 80 /min [facility] ([facility]) Diastolic blood pressure 77 mm[Hg] 77 mm[Hg] [facility] ([facility]) Systolic blood pressure 133 mm[Hg] 133 mm[Hg] [facility] ([facility]) Body surface area Derived from formula 1.90 m2 1.90 m2 [facility] ([facility]) Body mass index (BMI) [Ratio] 24.4 kg/m2 24.4 k g/m2 [facility] ([facility]) Body height 69 [in_i] 69 [in_i] [facility] ([facility]) 5'9" Body weight 74.844 kg 74.844 kg [facility] ([facility]) Body weight 165.00 [lb_av] 165.00 [lb_av] [facility] ([facility]) Body temperature 97.4 [degF] 97.4 [degF] [facility] ([facility]) Heart rate 55 /min 55 /min [facility] ([facility]) Diastolic blood pressure 84 mm[Hg] 84 mm[Hg] [facility] ([facility]) Systolic blood pressure 133 mm[Hg] 133 mm[Hg] [facility] ([facility]) Body surface area 1.90 m2 1.90 m2 [facility] ([facility]) Body weight 76.658 kg 76.658 kg [facility] ([facility]) Body weight 169.00 [lb_av] 169.00 [lb_av] [facility] ([facility]) Oxygen saturation in Arterial blood by Pulse oximetry 97 % 97 % [facility] ([facility]) Body temperature 98.8 [degF] 98.8 [degF] [facility] ([facility]) Heart rate 72 /min 72 /min [facility] ([facility]) Diastolic blood pressure 84 mm[Hg] 84 mm[Hg] [facility] ([facility]) Systolic blood pressure 134 mm[Hg] 134 mm[Hg] M [facility] ([facility]) Oxygen saturation in Arterial blood by Pulse oximetry 99 % 99 % [facility] Body mass index (BMI) [Ratio] 22.38 kg/m2 22.38 kg/m2 [facility] Respiratory rate 20 /min 20 /min [facility] ([facility]) Body temperature 36.00 Elma 36.00 Elma [facility] ([facility]) Heart rate 64 /min 64 /min [facility] ([facility]) Diastolic blood pressure 80 mm[Hg] 80 mm[Hg] [facility] ([facility]) Systolic blood pressure 110 mm[Hg] 110 mm[Hg] N [facility] ([facility]) Body weight 74.843 kg 74.843 kg [facility] Body height 182.88 cm 182.88 cm [facility] ([facility]) ID Date Data Source [id number] 07/25/2020 09:40:35 AM EDT [facility] Name Value Range Interpretation Code Description Data Source(s) WEIGHT RECORDED 165.00 pounds 165.00 pounds [facility] Height 69 Inches 069 Inches [facility]
[2020-12-15 14:45] VITALS: BP 134/84
--- NOTE | 2020-12-15 15:10 | RO ---
OPERATIVE NOTE DATE OF OPERATION: 12/15/2020 TIME: 12:01 p.m. PREOPERATIVE DIAGNOSIS: 1. Right index finger extensor digitorum tendon laceration, approximately 60%. 2. Sagittal band laceration, 50% forearm laceration and approximately one inch x2 on the volar aspects, two volar traumatic lacerations about the mid-level of the right forearm, laceration about the dorsal aspect of the distal forearm approximately 2 cm. 3. Foreign body of the right volar forearm. POSTOPERATIVE DIAGNOSIS: 1. Right index finger extensor digitorum tendon laceration, approximately 60%. 2. Sagittal band laceration, 50% forearm laceration and approximately one inch x2 on the volar aspects, two volar traumatic lacerations about the mid-level of the right forearm, laceration about the dorsal aspect of the distal forearm approximately 2 cm. 3. Foreign body of the right volar forearm. PROCEDURE: Right forearm volar laceration, irrigation and debridement. Sagittal band repair of the right index finger. Extensor digitorum tendon repair. Dorsal right forearm laceration, irrigation and debridement. SURGEON: Giovanni Mireles MD METERS SUPERINTENDENT: None. SUPERVISING ATTENDING: Giovanni Mireles MD FINDINGS: The patient had two volar lacerations which were lightly explored, irrigated and debrided. I was unable to find any glass in these wounds. I also irrigated and debrided the dorsal forearm laceration. The patient did have a 50% laceration of the sagittal band of the right index finger as well as 60% laceration of the extensor digitorum tendon. This was a zone 5 extensor tendon injury. 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 The patient had sustained a laceration to the right arm and his hand by glass, sustaining the aforementioned injury. He is indicated for the aforementioned procedure to include a forearm laceration irrigation and debridement x3, a sagittal band repair and an extensor digitorum tendon repair. ANESTHESIA: GETA. TOURNIQUET TIME: 72 minutes. ESTIMATED BLOOD LOSS: 15 mL. IV ANTIBIOTICS: Please see anesthesia report. IV FLUIDS: Please see anesthesia report. IMPLANTS: None. SPECIMENS: None. CULTURES: None. DESCRIPTION OF PROCEDURE: The patient was met in the preoperative holding area where the patient's operative right upper extremity was signed. The patient's consent was confirmed to be correct, and the patient's identity was confirmed to be correct. The patient was then transported to the operating theater where he was placed supine on a regular surgical flat-top bed with an arm table for his right upper extremity. Safety straps secured the patient to the bed. All bony prominences were well padded. The bilateral lower extremities had SCDs placed. A timeout was called to confirm the correct patient, correct operative extremity and correct consent. All staff was in agreement. The patient was then draped in the usual sterile fashion. We began the procedure by extending his two volar and traumatic lacerations of the right forearm. These were lightly scored. I did not appreciate any glass or any other obvious foreign bodies within these lacerations. They were thoroughly explored. However, we used blunt dissection in order to preserve any neurovascular structures nearby. The wound was copiously irrigated with three liters of normal saline. We then turned our attention to the distal dorsal right forearm laceration which was lightly explored and irrigated with an additional three liters normal saline. We then turned our attention was to the laceration overlying the metacarpophalangeal joint of the second metacarpal index finger junction. Upon arrival, we copiously irrigated with three liters of normal saline. The laceration did communicate with the metacarpophalangeal joint which was thoroughly irrigated. We then identified a 50% tear of the sagittal band as well as a 60% tear of the extensor digitorum tendon in zone 5. The extensor digitorum laceration was repaired using 4-0 Fiberwire (braided polyethylene suture) in a [id number] fashion. I then repaired the 50% sagittal band injury using 4-0 Fiberwire suture. At the completion of the repair, the patient did have an intact cascade of the right hand. We then loosely approximated the skin using a combination of simple sutures followed by two horizontal mattress sutures overlying the second metacarpophalangeal joint. We then closed the additional three traumatic lacerations using a simple 3-0 nylon suture. The tourniquet was let down. The patient had under two second capillary refill to all the digits of the hand. We placed Xeroform over all the surgical incisions and traumatic incisions followed by 4x4 gauze, Webril and the patient was placed in a well-padded volar slab splint for soft tissue rest. The patient was then extubated without complication and transported to the postanesthesia care unit. At this point in time, the patient will be nonweightbearing to the right upper extremity. However, we will have the patient follow up in 3-5 days at the [facility] for removal of his splint, examination of his surgical and traumatic wounds and referral to occupational therapy for early range of motion exercises of the right hand. The patient was provided his postoperative pain medication as well as three days of oral antibiotics and Colace. The patient will follow the extensor tendon repair rehabilitation protocol and follow up with occupational therapy after referral is given by the orthopedic clinic at [facility].
--- NOTE | 2020-12-15 15:10 | ER ---
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 Patient also has retained foreign body, likely glass, within the volar aspect of his proximal forearm, after sustaining the glass injury during a home improvement project on the morning of Thursday, December 15, 2020. Patient had the aforementioned glass injury during a home improvement project and presented to [facility] for further evaluation and treatment. The patient was seen by orthopedic surgery, who recommended he should undergo a right index finger extensor tendon zone 5 tendon repair, irrigation and debridement of the right hand and forearm and possible removal of the retained glass in the patient's right forearm. PAST MEDICAL HISTORY: Patient denies. PAST SURGICAL HISTORY: Gynecomastia reduction times three. CURRENT MEDICATIONS: Patient denies. ALLERGIES: Patient denies. SOCIAL HISTORY: He is a nondrinker, nonsmoker, non-IV drug user. However, he is a chewing tobacco user. REVIEW OF SYSTEMS: A 14 point review of systems is negative unless already described in the history of present illness (HPI) above. PHYSICAL EXAMINATION: Alert to person, time and place. RIGHT UPPER EXTREMITY: Patient had a 2 cm laceration overlying the dorsal aspect of his second metacarpophalangeal joint with approximately 80% destruction of his extensor tendon. He also had a volar forearm laceration with probable retained foreign body, likely glass. He had a brisk capillary refill, under 2 seconds, to all of his digits of the right hand. He had 2+ radial ulnar pulse. Patient was otherwise neurovascularly intact. Sensation intact to light touch the musculocutaneous axillary, radial, median and ulnar nerves distributions of the right upper extremity and he had intact motor movement of the musculature of the musculocutaneous axillary, radial, median and ulnar nerve distributions. He did have sensation to the radial and ulnar aspects of his right index finger and brisk capillary refill to the distal aspect of the patient's index finger. He was able to make a clenched fist and was able to extend his index finger with 4/5 strength. He had intact extension of the distal interphalangeal joint (DIPJ), proximal interphalangeal joint (PIPJ) and metacarpophalangeal joint (MCPJ) and wrists despite his significant extensor tendon laceration. IMAGING DATA: Right had radiograph demonstrate no osseous abnormalities. Soft tissue windows appear to be normal despite his injury. Right forearm radiograph demonstrates possible radial opacities in the volar aspect of the right forearm. However, this is very subtle. Otherwise, no osseous abnormalities in the right forearm. IMPRESSION: The patient is indicated for surgical procedure. PLAN: Given the patient's physical examination and story, I do believe the patient would benefit from a right index finger extensor tendon acute repair, as well as irrigation and debridement of the aforementioned lacerations and possible removal of the glass in the forearm if the glass is superficial. I will not attempt to explore deep into the arm, as retained glass likely has minimal risk compared to extensive exploration of the volar aspect of patient's right forearm. Patient was made nothing by mouth (NPO). COVID negative test preoperatively. Patient will likely be discharged after the aforementioned procedure. KELSEY
== END | disposition home or self-care (01) ==
LOC: M ED 02:05 → M SDC 10:37
PROVIDERS: ATTEND Orthopaedic Surgery
DX: S66.320A Laceration of extensor muscle, fascia and tendon of right index finger at wrist and hand level, initial encounter (principal); Y28.0XXA Contact with sharp glass, undetermined intent, initial encounter; Y93.9 Activity, unspecified; Y92.9 Unspecified place or not applicable; Y99.9 Unspecified external cause status; F17.220 Nicotine dependence, chewing tobacco, uncomplicated; Z11.52 Encounter for screening for COVID-19; Z23 Encounter for immunization
CPT/HCPCS: 26410; 26433; 73070; 73090; 73120; 87631; 90471; 90714; 96360; 96361; 96374; 96375; 96376; 99285; J0131; J0690; J1100; J1885; J2250; J2270; J2405; J3010

== ENCOUNTER 2021-04-18 13:07 | Emergency (ER) | payer OTHER ==
[~2021-04-18] VITALS: Ht 175.3 cm; Wt 79.5 kg
[2021-04-18 13:07] VITALS: BP 139/84
[~2021-04-18 13:07] MED LIST changes: -ACETAMINOPHEN 1000MG 100ML IV BTL (OFIRMEV) (J0131 PER 10MG) As Ordered ONE; -BUPIVACAINE HCL 0.5% 10ML VIAL As Ordered ONE; -KETOROLAC 60MG 2ML VIAL As Ordered ONE; -LIDOCAINE 1% MDV 20ML VIAL As Ordered ONE; -LIDOCAINE 1% MDV 20ML VIAL SC ONE; -LIDOCAINE 2% 100MG/5ML SDV (FOR ANES.) As Ordered ONE; -LR 1,000 ML IV SCH; -MIDAZOLAM INJ 2MG/2ML VIAL (J2250 PER 1MG) As Ordered ONE; -MORPHINE 4 MG/ML 1ML VIAL/SYRINGE (J2270) As Ordered ONE; -MORPHINE 4 MG/ML 1ML VIAL/SYRINGE (J2270) IV ONE; -ONDANSETRON 4MG/2ML VIAL As Ordered ONE; -ONDANSETRON 4MG/2ML VIAL IV ONE; -ONDANSETRON 4MG/2ML VIAL IV PRN; -TETANUS/DIPHTHERIA TOX ADSORB ADULT 0.5ML SYR/VIAL (90714) IM ONE; -ceFAZolin SOD 2 GM in IV 1 EA IV ONE; -dexameTHASONE 4 MG/ML 1ML VIAL (J1100 PER 1MG) As Ordered ONE; -fentaNYL 100 MCG/2 ML INJECTION (J3010) IV PRN; -fentaNYL 250 MCG/5 ML INJECTION (J3010) As Ordered ONE; -oxyCODONE 5MG TAB PO PRN; -propofoL 200 MG/20 ML VIAL As Ordered ONE
--- NOTE | 2021-04-18 14:10 | REP ---
INDICATION: Hand through glass table COMPARISON: None. TECHNIQUE: AP, lateral, bilateral oblique views right hand. FINDINGS: Soft tissue injuries at the tips of the 3rd and 4th digits noted without foreign body material. Remainder of the examination is normal. No acute fracture or dislocation. IMPRESSION: Subtle soft tissue injuries at the tips of the 3rd and 4th digits without foreign body material. No acute fracture. <Electronically signed by Montana Altman > 04/18/21 1501
[2021-04-18] MEDS ORDERED: LIDOCAINE 1% MDV 20ML VIAL SC ONE (17:25)
[2021-04-18] MEDS ORDERED: NEOSPORIN OINT 0.9 GM PKT TOP ONE (17:25)
== END 2021-04-18 18:19 | disposition home or self-care (01) ==
LOC: M ED 13:07
DX: S61.212A Laceration without foreign body of right middle finger without damage to nail, initial encounter (principal); S61.214A Laceration without foreign body of right ring finger without damage to nail, initial encounter; W25.XXXA Contact with sharp glass, initial encounter; Y92.019 Unspecified place in single-family (private) house as the place of occurrence of the external cause; Y93.9 Activity, unspecified; Y99.9 Unspecified external cause status